=== PATIENT | female | born 1970 | race Caucasian/White ===

== ENCOUNTER 2019-08-27 16:17 | Emergency (ER) | payer OTHER ==
[2019-08-27 16:42] VITALS: TEMP 98.9
[2019-08-27] MEDS ORDERED: HYDROcodone 5MG/APAP 325MG 1 EA TAB PO ONE (17:29)
[2019-08-27] MEDS ORDERED: ACETAMINOPHEN 325 MG TAB PO ONE (17:30)
--- NOTE | 2019-08-27 18:08 | ED.PDOC ---
History of Present Illness - General Chief Complaint: General Stated Complaint: abdominal pain, headache Time Seen by Provider: 08/27/19 16:55 - History of Present Illness Initial Comments: 48-year-old female presents the emergency department for several weeks of abdominal cramping, which has started following a year without menses, and then a 10-day menstrual event with heavy bleeding. Has seen her primary care physician, who ordered labs last week, and an outpatient ultrasound. She has been unable to reach the PCP regarding the lab results, and is having difficulty setting up the ultrasound. No acute change in her symptoms today, just with persisting discomfort that is not relieved by OTC meds. Has also noted feeling dizzy, which can occur with standing or at rest, generally resolves quickly. Allergies/Adverse Reactions: Allergies Butorphanol [From Stadol] Allergy (Verified 08/27/19 16:45) Dichloralphenazone [From Midrin] Allergy (Verified 08/27/19 16:44) Other Erythromycin Allergy (Verified 08/27/19 16:44) Other Isometheptene [From Midrin] Allergy (Verified 08/27/19 16:44) Other Sulfa Antibiotics Allergy (Verified 08/27/19 16:44) Rash Home Medications: Ambulatory Orders Acetaminophen W/ Codeine [Tylenol W/ CODEINE #3] 1 ea PO Q6H PRN #15 08/27/19 Duloxetine HCl 40 mg PO DAILY 08/27/19 [place] Carbonate 300 mg PO BEDTIME 08/27/19 Meclizine HCl [Meclizine 25] 25 mg PO Q8HR PRN #12 tab 08/27/19 Meloxicam 15 mg PO DAILY 08/27/19 Metoprolol Tartrate 50 mg PO BID 08/27/19 Ondansetron Odt [Zofran ODT] 4 mg PO Q6H PRN #10 tab 08/27/19 Quetiapine Fumarate 400 mg PO BEDTIME 08/27/19 Thyroid [Complaint Operator Thyroid 120] 120 mg PO DAILY 08/27/19 Trazodone HCl [Trazodone Hydrochloride] 100 mg PO BEDTIME 08/27/19 Review of Systems - Review of Systems Review of Systems: 08/27/19 18:08 General: Denies generalized weakness, fever, arthralgia/myalgia HEENT: Denies sore throat, rhinorrhea Cardiovascular: Denies chest pain, palpitations Respiratory: Denies SOB, cough Gastrointestinal: has abdominal pain, no vomiting, diarrhea. : Denies dysuria, frequency. menses after one year of no bleeding, as in HPI. Musculoskeletal: Denies extremity pain, extremity swelling Integument: Denies rash, itching Neuro: Denies focal weakness or numbness, has dizziness Psych: Denies depression, hallucinations. Past Medical History (General) - Patient Medical History Hx Seizures: Yes - absence Hx Stroke: No Hx Asthma: Yes Hx Cardiac Disorders: Yes - "RAPID HEARTBEAT" Hx Thyroid Disease: Yes Hx Diabetes: No Hx Gastroesophageal Reflux: Yes Hx Renal Disease: Yes - cysts Surgical History: other - Vaccination History Hx Influenza Vaccination: No - Social History Hx Tobacco Use: No - Female History Hx Last Menstrual Period: 08/15/19 Family Medical History - Family History Mother Family History: No Known Physical Exam - Physical Exam Comments: General Appearance: Patient is awake and alert. Skin: Warm and dry. No diaphoresis. No rash or other lesions. Head: Normocephalic/atraumatic. Eyes: PERRL, lids, conjunctiva and sclera unremarkable. EOMI intact. ENT: No nasal discharge. Oropharynx. Without erythema, exudate, lesions. Moist mucous membranes. Neck: Supple. No LAD. No tenderness. No JVD noted. Respiratory: Normal rate and effort. Breath sounds clear bilaterally. Cardiovascular: Regular rate. Heart sounds normal. No murmur. GI: Abdomen soft, non-distended and non-tender. mild discomfort in LQs w palpation. No rebound/guarding. Bowel sounds normal. Back: No tenderness Musculoskeletal: Extremities- Normal range of motion. No effusion, cyanosis, edema. Neurological: Alert. No facial palsy. Speech clear. Gag intact. No motor deficit, str symmetric. No sensory deficit. Progress - Progress Progress: 08/27/19 19:02 Patient feels better. VS, exam remain reassuring. Labs from clinic reviewed, wnl, no anemic, imaging here is without acute abnormality. I have discussed findings, diff dx, plan of care, need for follow-up for pelvic US, and reasons to return to the ED. Safety Stop (Diagnostic Time-Out): Tachycardia: No Diagnostic Studies: Reviewed Diagnostic Certainty: low Patient/family feels safe with discharge: Yes - Results/Orders Results/Orders: Vital Signs - 24 hr 08/27/19 08/27/19 16:31 18:00 Temperature 98.9 F Pulse Rate [ 74 77 left brachial] Respiratory 16 16 Rate Blood Pressure 136/73 119/74 [left brachial] O2 Sat by Pulse 98 95 Oximetry - EKG/XRAY/CT CT Ordered: Yes - abd pelvis normal, no acute abnl Departure - Departure Clinical Impression: Pelvic pain, Dizziness Disposition: Discharge to Home or Self Care Condition: Good Departure Forms: ED Discharge - Pt. Copy, Patient Portal Self Enrollment Diet: resume usual diet Activity: increase activity as tolerated Referrals: JUAN DEMARCO IV DEMURRAGE CLERK [Primary Care Provider] - 1-5 Days Prescriptions: Meclizine HCl [Meclizine 25] 25 mg PO Q8HR PRN #12 tab PRN Reason: Dizziness Acetaminophen W/ Codeine [Tylenol W/ CODEINE #3] 1 ea PO Q6H PRN #15 PRN Reason: Pain Ondansetron Odt [Zofran ODT] 4 mg PO Q6H PRN #10 tab PRN Reason: Nausea Home Medications: Ambulatory Orders Acetaminophen W/ Codeine [Tylenol W/ CODEINE #3] 1 ea PO Q6H PRN #15 08/27/19 Duloxetine HCl 40 mg PO DAILY 08/27/19 [place] Carbonate 300 mg PO BEDTIME 08/27/19 Meclizine HCl [Meclizine 25] 25 mg PO Q8HR PRN #12 tab 08/27/19 Meloxicam 15 mg PO DAILY 08/27/19 Metoprolol Tartrate 50 mg PO BID 08/27/19 Ondansetron Odt [Zofran ODT] 4 mg PO Q6H PRN #10 tab 08/27/19 Quetiapine Fumarate 400 mg PO BEDTIME 08/27/19 Thyroid [Complaint Operator Thyroid 120] 120 mg PO DAILY 08/27/19 Trazodone HCl [Trazodone Hydrochloride] 100 mg PO BEDTIME 08/27/19 Comments: Gaurav Bhatia MD Emergency Medicine #[id number]
--- NOTE | 2019-08-27 18:50 | CT ---
EXAM: Abdoment/Pelvis w/o Contrast CLINICAL INDICATION: Abdominal pain. COMPARISON: There is no previous study for comparison. TECHNIQUE: The CT scan was done using contiguous axial 2.5 mm noncontrast sections through the abdomen and pelvis. This exam was performed according to our departmental dose-optimization program, which includes automated exposure control, adjustment of the mA and/or kV according to patient size and/or use of iterative reconstruction technique. FINDINGS: The visualized portions of the lung bases contain mild subsegmental atelectasis but are otherwise clear. The liver, gallbladder, aorta, pancreas, adrenal glands, and spleen are unremarkable. Multiple nonobstructing stones are noted in both kidneys as well as multiple small simple appearing renal cysts bilaterally. The kidneys are otherwise unremarkable. No hydronephrosis or ureteral stone is identified. Diverticulosis of the colon is noted without findings of acute diverticulitis. The appendix appears prominent measuring up to 9 mm, but contains air and appears noninflamed. There is no free air, free fluid, or abscess. There are no dilated loops of small bowel. IMPRESSION: 1. Multiple nonobstructing stones in both kidneys. 2. Prominent appendix measuring up to 9 mm, without evidence of inflammation. Finding probably represents a normal variation although appendicitis cannot be totally excluded. 3. No other acute intra-abdominal process is identified. 4. Diverticulosis. Electronically signed by: Serg Narayan MD 08/27/2019 6:48 PM DIGITAL PRODUCT SPECIALIST
[2019-08-27 19:17] VITALS: BP 123/77; O2SAT 98
== END 2019-08-27 19:33 | disposition home or self-care (01) ==
LOC: ER 16:17
DX: R10.2 Pelvic and perineal pain (principal); R42 Dizziness and giddiness; J45.909 Unspecified asthma, uncomplicated; E07.9 Disorder of thyroid, unspecified; K21.9 Gastro-esophageal reflux disease without esophagitis; R56.9 Unspecified convulsions; Z79.899 Other long term (current) drug therapy; Z88.8 Allergy status to other drugs, medicaments and biological substances; Z88.2 Allergy status to sulfonamides

== ENCOUNTER → 2019-10-14 | Outpatient (CLI) | payer OTHER ==
--- NOTE | 2019-10-15 00:54 | US ---
EXAM DESCRIPTION: Pelvis Transvaginal: Ultrasound. CLINICAL HISTORY: 49 years Female POSTMENOPAUSAL BLEEDING. LMP August 2018. 1, para 0, and ectopic 1. COMPARISON: Ultrasound thyroid on the same visit. TECHNIQUE: Transpelvic scanning through the urine filled bladder. Endovaginal scanning; Koenig-scale and Doppler modes. FINDINGS: Uterus 9.0 x 3.8 x 3.7 cm 72.3 mL.. Endometrial thickness 9.1 mm. Myometrium homogeneous. Hypoechoic mass near the uterine fundus measuring 2.3 x 1.8 x 1.4 not vascular. Uterus anteverted. Cervix 8.5 x 5.7 mm cyst. Cul-de-sac no fluid. Right ovary 2.0 x 2.0 x 1.3 cm 3 mm. Normal waveform and color Doppler vascularity. No follicles or cysts. No adnexal mass or free fluid. Left ovary 3.9 x 3.5 x 2.5 cm 17.5 mL. Normal waveform and color Doppler vascularity. 3.6 x 3.1 x 2.1 cm simple cysts, not vascular, anechoic and posterior acoustic enhancement. No adnexal mass or free fluid. IMPRESSION: 1. 3.6 cm simple ovarian cyst. Recommend follow-up pelvic US annually. Normal vascularity. Right ovary unremarkable. No adnexal mass or free fluid. Reference: Radiology 2010 Mar;256(3):943-54. 2. Normal position and size of the uterus. No endometrial thickening. 2.3 cm fibroid. 8.5 mm nabothian cyst. No free fluid in the cul-de-sac. Electronically signed by: Clay Obrien MD 10/14/2019 9:46 PM CDT
--- NOTE | 2019-10-15 14:44 | US ---
US THYROID CLINICAL STATEMENT:49 years Female NONTOXIC GOITER. COMPARISON: None TECHNIQUE: Transcutaneous scanning, grayscale and Doppler modes. FINDINGS: Size right thyroid lobe: 6.4 x 2.0 x 1.7 cm Size left thyroid lobe: 2.7 x 1.4 x 0.9 cm Size isthmus: 0.2 cm Estimated total number of nodules greater than or equal to 1 cm: 4. Heterogeneous bilateral lobes. Nodule 1: Size: 2.4 x 2.3 x 1.7 cm Location: Right Mid Composition: solid or almost completely solid: 2 points Echogenicity: hypoechoic: 2 points Shape: wider than tall: 0 points Margins: smooth: 0 points. Marginal vascularity. Echogenic foci: none: 0 points ACR Total Points: 4; ACR TI-RADS risk category: TR4 - moderately suspicious nodule. Nodule 2: Size: 1.3 x 1.2 x 1.1 cm Location: Right Upper Composition: solid or almost completely solid: 2 points. Echogenicity: very hypoechoic: 3 points Shape: taller than wide: 3 points Margins: smooth: 0 points. Marginal vascularity. Echogenic foci: none: 0 points ACR Total Points: >/= 7; ACR TI-RADS risk category: TR5 - highly suspicious nodule. Nodule 3: Size: 1.1 x 0.8 x 0.7 cm Location: Right Lower Composition: solid or almost completely solid: 2 points diffuse increased vascularity. Echogenicity: hypoechoic: 2 points Shape: wider than tall: 0 points Margins: smooth: 0 points Echogenic foci: none: 0 points ACR Total Points: 4; ACR TI-RADS risk category: TR4 - moderately suspicious nodule. Nodule 4: Size: 1.0 x 0.9 x 0.9 cm Location: Left Mid Composition: solid or almost completely solid: 2 points Echogenicity: isoechoic: 1 point Shape: wider than tall: 0 points Margins: smooth: 0 points. Increased vascularity. Echogenic foci: none: 0 points ACR Total Points: 3; ACR TI-RADS risk category: TR3 - mildly suspicious nodule. No dominant solid mass, no distinct cyst, no large calcifications in the surrounding soft tissues. IMPRESSION: 1. Nodule 1: ACR TI-RADS 2017 Category TR4. Recommend: Ultrasound-guided fine needle aspiration. Recommendations based upon [facility] Best Practice recommendations and ACR TI-RADS 2017 guidelines. Please see below*. 2. Nodule 2: ACR TI-RADS 2017 Category TR5. Recommend: Ultrasound-guided fine needle aspiration 3. Nodule 3: ACR TI-RADS 2017 Category TR4. Recommend: Follow-up ultrasound in 1 year. 4. Nodule 4: ACR TI-RADS 2017 Category TR3. Recommend: No further follow-up. Soft tissue around the thyroid gland is unremarkable. *ACR TI-RADS 2017 Recommendations for imaging follow-up of nodules: TR1: No FNA or follow up TR2: No FNA or follow up TR3: FNA if >/= 2.5 cm, follow up if 1.5 - 2.4 cm in 1, 3, and 5 years TR4: FNA if >/= 1.5 cm, follow up if 1.0 - 1.4 cm in 1, 2, 3, and 5 years TR5: FNA if >/= 1.0 cm, follow up if 0.5 - 0.9 cm every year for 5 years ACR TI-RADS recommends that no more than two nodules with the highest ACR TI-RADS total point should be biopsied and no more than four nodules should be followed. These recommendations do not apply to patients with increased risk for thyroid cancer or patients with symptomatic thyroid disease. Electronically signed by: Clay Obrien MD 10/15/2019 2:42 PM CDT

== ENCOUNTER → 2020-07-19 | Outpatient (CLI) | payer OTHER ==
--- NOTE | 2020-07-19 17:25 | RAD ---
EXAM DESCRIPTION: Abdomen Series CLINICAL HISTORY: 49 years Female, GEN ABD PN COMPARISON: CT abdomen and pelvis August 27, 2019 FINDINGS: Chest x-ray shows normal-sized heart with clear lungs. Upright view shows no free air under the diaphragm. No air-fluid levels. Supine view shows normal bowel gas pattern. No significant distention of stomach or colon. Bones are normal for age. Calcification in the right kidney measures [address] showed a large parenchymal calcification in this area with overlying renal cortical scarring. Small bilateral renal calcifications or stones were seen on the previous study (CT abdomen and pelvis August 27, 2019). Calcifications in the left pelvis are indeterminate on KUB. The previous CT showed multiple phleboliths. Correlate with cross-sectional imaging if indicated. Upright view with no abnormal air-fluid levels. IMPRESSION: Right renal calcification or stone 9 mm. Lower pelvic calcifications probably vascular. Electronically signed by: Riley Portillo MD 07/19/2020 5:23 PM ELEMENTARY ASSISTANT PRINCIPAL
--- NOTE | 2020-07-20 09:10 | US ---
US THYROID CLINICAL STATEMENT:49 years Female HYPOTHYROIDISM, UNSP. COMPARISON: Ultrasound thyroid October 13. TECHNIQUE: Transcutaneous scanning, grayscale and Doppler modes. FINDINGS: Size right thyroid lobe: 4.7 x 2.7 x 2.1 cm Size left thyroid lobe: 2.3 x 1.1 x 1.0 cm Size isthmus: 0.21 cm Estimated total number of nodules greater than or equal to 1 cm: 4. Nodule 1: Size: 2.4 x 2.3 x 1.9 cm. 2.4 x 2.3 x 1.7 cm on the prior examination. Location: Right Mid Composition: solid or almost completely solid: 2 points Echogenicity: hypoechoic: 2 points. Shape: wider than tall: 0 points. Margins: smooth: 0 points. Marginal vascularity. Echogenic foci: none: 0 points. ACR Total Points: 4; ACR TI-RADS risk category: TR4 - moderately suspicious nodule. Nodule 2: Size: 1.4 x 1.1 x 0.9 cm. 1.3 x 1.2 x 1.1 cm on the prior examination. Location: Right Upper Composition: solid or almost completely solid: 2 points Echogenicity: hypoechoic: 2 points. Very hypoechoic on the prior study. Shape: wider than tall: 0 points. Total than wide on the prior study. Margins: smooth: 0 points Echogenic foci: none: 0 points ACR Total Points: 4; ACR TI-RADS risk category: TR4 - moderately suspicious nodule. Nodule 3: Size: 1.1 x 1.0 x 0.8 cm. 1.1 x 0.8 x 0.7 cm on the prior study. Location: Right Lower Composition: solid or almost completely solid: 2 points Echogenicity: hypoechoic: 2 points Shape: wider than tall: 0 points Margins: smooth: 0 points Echogenic foci: none: 0 points ACR Total Points: 4; ACR TI-RADS risk category: TR4 - moderately suspicious nodule. Nodule 4: Size: 1.0 x 1.0 x 1.0 cm. 1.0 x 0.9 x 0.9 cm on the prior study. Location: Left Mid Composition: solid or almost completely solid: 2 points. Minimally vascular. Echogenicity: hypoechoic: 2 points Shape: wider than tall: 0 points Margins: smooth: 0 points Echogenic foci: none: 0 points ACR Total Points: 4; ACR TI-RADS risk category: TR4 - moderately suspicious nodule. No dominant soft tissue mass, no distinct cysts, no fluid collection, and no large calcifications in the surrounding soft tissues. IMPRESSION: 1. Nodule 1: ACR TI-RADS 2017 Category TR4. Recommend: Ultrasound-guided fine needle aspiration. If not performed since the prior study. Recommendations based upon [facility] Best Practice recommendations and ACR TI-RADS 2017 guidelines. Please see below*. 2. Nodule 2: ACR TI-RADS 2017 Category TR4. Recommend: Follow-up ultrasound in 1 year. 3. Nodule 3: ACR TI-RADS 2017 Category TR4. Recommend: Follow-up ultrasound in 1 year. 4. Nodule 4: ACR TI-RADS 2017 Category TR4. Recommend: Follow-up ultrasound in 1 year. Soft tissue in the thyroid gland is unremarkable. *ACR TI-RADS 2017 Recommendations for imaging follow-up of nodules (baseline study): TR1: No FNA or follow up TR2: No FNA or follow up TR3: FNA if >/= 2.5 cm, follow up if 1.5 - 2.4 cm in 1, 3, and 5 years TR4: FNA if >/= 1.5 cm, follow up if 1.0 - 1.4 cm in 1, 2, 3, and 5 years TR5: FNA if >/= 1.0 cm, follow up if 0.5 - 0.9 cm every year for 5 years ACR TI-RADS recommends that no more than two nodules with the highest ACR TI-RADS total point should be biopsied and no more than four nodules should be followed. These recommendations do not apply to patients with increased risk for thyroid cancer or patients with symptomatic thyroid disease. Electronically signed by: Clay Obrien MD 07/20/2020 9:03 AM [facility]
== END ==
LOC: LAB.O 12:47
PROVIDERS: ATTEND Nurse Practitioner Family
DX: N20.0 Calculus of kidney (principal); I86.2 Pelvic varices; R10.84 Generalized abdominal pain; E04.2 Nontoxic multinodular goiter; E03.9 Hypothyroidism, unspecified